=== PATIENT | male | born 1965 ===

== ENCOUNTER 2017-02-21 18:29 | Emergency (ER) | payer OTHER ==
--- NOTE | 2017-02-21 19:52 | C.PDOC ---
History Of Present Illness 51 year old male presents to the ED c/o left testicular pain on/off described as dull, aching, throbbing pain for the last 2 and half days. Patient denies dysuria, hematuria, trauma, injury, abdominal pain, fever, nausea, vomit. Time Seen by Provider: 02/21/17 19:51 Chief Complaint (Nursing): Male Genitourinary History Per: Patient History/Exam Limitations: no limitations Onset/Duration Of Symptoms: Days Current Symptoms Are (Timing): Still Present Quality Of Discomfort: Dull, Aching Associated Symptoms: denies: Fever, Chills, Diarrhea, Back Pain, Urinary Symptoms Alleviating Factors: None Recent travel outside of the [place]: No Additional History Per: Patient Past Medical History Reviewed: Historical Data, Nursing Documentation, Vital Signs Vital Signs: Last Vital Signs Temp 97.7 F 02/21/17 18:36 Pulse 82 02/21/17 18:36 Resp 20 02/21/17 18:36 BP 146/81 02/21/17 18:36 Pulse Ox 100 02/21/17 21:11 - Medical History PMH: No Chronic Diseases Surgical History: No Surg Hx Family History: States: No Known Family Hx - Social History Hx Alcohol Use: No Hx Substance Use: No Review Of Systems Constitutional: Negative for: Fever, Chills Cardiovascular: Negative for: Chest Pain Respiratory: Negative for: Cough, Shortness of Breath Gastrointestinal: Negative for: Nausea, Vomiting, Abdominal Pain Genitourinary: Negative for: Dysuria, Hematuria Musculoskeletal: Positive for: Other (left testicle pain) Skin: Negative for: Rash Neurological: Negative for: Weakness, Numbness Physical Exam - Physical Exam Appears: Non-toxic, No Acute Distress Skin: Warm, Dry Head: Normacephalic Nose: No Discharge Oral Mucosa: Moist Neck: Normal ROM, Supple Chest: Symmetrical Cardiovascular: Rhythm Regular, No Murmur Respiratory: No Rales, No Rhonchi, No Wheezing Gastrointestinal/Abdominal: Soft, No Tenderness Male Genital: Testicular Tenderness (left), Testicular Swelling (Left), No Inguinal Tenderness, No Circumcised, No Other (No mass palpated) Extremity: Normal ROM, No Pedal Edema, No Calf Tenderness, No Swelling Neurological/Psych: Oriented x3, Normal Speech, Normal Cognition ED Course And Treatment - Laboratory Results Result Diagrams: 02/21/17 20:21 02/21/17 20:21 O2 Sat by Pulse Oximetry: 100 (On RA) Pulse Ox Interpretation: Normal - CT Scan/US Testicular US Other Rad Studies (CT/US): Interpreted By Me, Read By Radiologist, Radiology Report Reviewed CT/US Interpretation: EXAM: US Scrotum. EXAM DATE/TIME: Exam ordered 2016 7:54 PM. CLINICAL HISTORY: 51 years old, male; Pain; Other: Lt test pain ; Additional info: Left testicular pain. TECHNIQUE: Real-time ultrasound of the scrotum with color Doppler and image documentation. COMPARISON: No relevant prior studies available. FINDINGS: Right testicle: The right testicle measures 4.9 x 2.3 x 2.7 cm. No torsion. Left testicle: The left testicle measures 3.7 2.8 x 3.1 cm. No torsion. Epididymides: The head of the right epididymis measures 1.2 x 0.6 x 1.1 cm. The left epididymal. head measures 1.4 x 0.7 x 0.9 cm. The tail of the left epididymis is enlarged and hypervascular. The. tail measures 2 cm in maximal diameter. Scrotum: There is a small to moderate sized left hydrocele. The fluid contains a few internal. scattered echoes. There is a small complex right hydrocele. Other findings: Vascularity is noted within both testes on color Doppler and pulsed Doppler. examination. The echotexture of the testes is symmetric and homogeneous. IMPRESSION: 1. Left epididymitis. 2. Small hydroceles bilaterally, left greater than right. 3. Small left varicocele Progress Note: Plan: Blood work, UA, Testicular US Reevaluation Time: 21:14 Reassessment Condition: Improved Disposition Counseled Patient/Family Regarding: Studies Performed, Diagnosis, Need For Followup, Rx Given - Disposition Referrals: [facility] [Outside] [facility] [Outside] Luis Hauser MD [Staff Provider] - Disposition: HOME/ ROUTINE Disposition Time: 19:52 Condition: FAIR Prescriptions: levoFLOXacin [Levaquin] 500 mg PO DAILY #7 tab Naproxen [Naprosyn] 1 tab PO BID PRN #25 tab PRN Reason: Pain Instructions: Epididymitis (ED), Testicle Pain (ED) Forms: [employer] (Serbian) - Clinical Impression Clinical Impression: Epididymitis - Scribe Statement The provider has reviewed the documentation as recorded by the Scribe Mitch Otoole All medical record entries made by the Scribe were at my direction and personally dictated by me. I have reviewed the chart and agree that the record accurately reflects my personal performance of the history, physical exam, medical decision making, and the department course for this patient. I have also personally directed, reviewed, and agree with the discharge instructions and disposition.
[2017-02-21] MEDS ORDERED: Lactated Ringer's 1,000 ML IV ONE (19:54)
[2017-02-21 20:34] LABS: BASO # 0.1 K/uL (0.0-0.2); BASO % 0.6 % (0.0-2.0); EOS # 0.2 K/uL (0.0-0.7); EOS % 1.6 % (0.0-4.0); HEMATOCRIT 36.5 % (35.0-51.0); LYMPH # 2.6 K/uL (1.0-4.3); LYMPH % 19.9 % (20.0-40.0); MEAN CELL VOLUME 83.9 fL (80.0-94.0); MEAN CORPUSCULAR HEMOGLOBIN 28.3 pg (27.0-31.0); MEAN CORPUSCULAR HGB CONC 33.7 g/dL (33.0-37.0); MEAN PLATELET VOLUME 6.6 fL (7.2-11.7); MONO # 1.1 K/uL (0.0-0.8); MONO % 8.8 % (0.0-10.0); NRBC % 0.3 % (0.0-2.0); WHITE BLOOD COUNT 13.1 K/uL (4.8-10.8)
[2017-02-21 20:47] LABS: BLOOD UREA NITROGEN 14 mg/dL (9-20); CALCIUM 8.9 mg/dl (8.6-10.4); CARBON DIOXIDE 30 mmol/L (22-30); CHLORIDE 102 mmol/L (98-107); GFR AFRICAN-AMERICAN > 60; GLUCOSE,RANDOM 98 mg/dL (75-110); SODIUM 139 mmol/L (132-148)
[2017-02-21 20:54] LABS: RBC URINE 198 /hpf (0-3); URINE BACTERIA MOD (<OCC); URINE BILIRUBIN NEGATIVE (NEGATIVE); URINE BLOOD 2+ (NEGATIVE); URINE COLOR Yellow (YELLOW); URINE GLUCOSE (UA) NORMAL (Normal); URINE KETONE NEGATIVE (NEGATIVE); URINE LEUKOCYTE ESTERASE 3+ Leu/uL (Negative); URINE PROTEIN 2+ mg/dL (NEGATIVE); WBC URINE 241 /hpf (0-5)
[2017-02-21] MEDS ORDERED: cefTRIAXone IV 1 gm in Dextros 50 ML IVPB ONE (21:03)
--- NOTE | 2017-02-21 21:09 | US ---
EXAM: US Scrotum EXAM DATE/TIME: Exam ordered 02/21/2017 7:54 PM CLINICAL HISTORY: 51 years old, male; Pain; Other: Lt test pain; Additional info: Left testicular pain TECHNIQUE: Real-time ultrasound of the scrotum with color Doppler and image documentation. COMPARISON: No relevant prior studies available. FINDINGS: Right testicle: The right testicle measures 4.9 x 2.3 x 2.7 cm. No torsion. Left testicle: The left testicle measures 3.7 2.8 x 3.1 cm. No torsion. Epididymides: The head of the right epididymis measures 1.2 x 0.6 x 1.1 cm. The left epididymal head measures 1.4 x 0.7 x 0.9 cm. The tail of the left epididymis is enlarged and hypervascular. The tail measures 2 cm in maximal diameter. Scrotum: There is a small to moderate sized left hydrocele. The fluid contains a few internal scattered echoes. There is a small complex right hydrocele. Other findings: Vascularity is noted within both testes on color Doppler and pulsed Doppler examination. The echotexture of the testes is symmetric and homogeneous. IMPRESSION: 1. Left epididymitis 2. Small hydroceles bilaterally, left greater than right. 3. Small left varicocele
[2017-02-21] MEDS ORDERED: cefTRIAXone 1 gm 1 GM/100 ML BAG IVPB ONE (22:00)
[2017-02-21 22:48] VITALS: BP 132/71; PULSE 78; RESP 16; TEMP 98.5; O2SAT 99
== END 2017-02-21 22:48 | disposition home or self-care (01) ==
LOC: C.ER 18:29
DX: N45.1 Epididymitis (principal)
CPT/HCPCS: 76870; 80048; 81001; 84484; 85025; 85730; 96361; 96365; 99284; J0696; J7120

== ENCOUNTER 2018-01-29 08:28 | Emergency (ER) | payer OTHER ==
[2018-01-29 08:36] VITALS: O2SAT 100
[2018-01-29] MEDS ORDERED: Naproxen 550 mg Tab PO STA (09:35)
[2018-01-29] MEDS ORDERED: Naproxen 550 mg Tab PO ONE (09:46)
--- NOTE | 2018-01-29 10:18 | C.PDOC ---
History Of Present Illness 52 year old male presents to the ED for evaluation of right elbow pain for 2 months. Patient states pain is worse with movement of his right forearm. He is not currently working. Patient denies trauma to the area, rash or sensory changes. Time Seen by Provider: 01/29/18 09:02 Chief Complaint (Nursing): Upper Extremity Problem/Injury History Per: Patient History/Exam Limitations: no limitations Onset/Duration Of Symptoms: Other (2 months ) Current Symptoms Are (Timing): Still Present Quality: "Pain" Additional History Per: Patient Past Medical History Reviewed: Historical Data, Nursing Documentation, Vital Signs Vital Signs: Last Vital Signs Temp 97.9 F 01/29/18 08:33 Pulse 56 L 01/29/18 08:33 Resp 18 01/29/18 08:33 BP 130/82 01/29/18 08:33 Pulse Ox 100 01/29/18 08:33 - Medical History PMH: No Chronic Diseases Surgical History: No Surg Hx Family History: States: Unknown Family Hx - Social History Hx Alcohol Use: No Hx Substance Use: No - Immunization History Hx Tetanus Toxoid Vaccination: No Hx Influenza Vaccination: No Hx Pneumococcal Vaccination: No Review Of Systems Musculoskeletal: Positive for: Other (right elbow pain ) Skin: Negative for: Rash Neurological: Negative for: Weakness, Numbness Physical Exam - Physical Exam Appears: Non-toxic, No Acute Distress, Other (comfortable ) Skin: Normal Color, Warm, Dry, No Rash Head: Atraumatic, Normacephalic Eye(s): bilateral: Normal Inspection Extremity: Normal ROM (limited ROM, secondary to pain worse with pronation and supination of the area), Tenderness (to lateral aspect of right elbow on palpation ), Capillary Refill (less than 2 seconds ), No Deformity, No Swelling, No Other (erythema ) Pulses: Left Radial: Normal, Right Radial: Normal Neurological/Psych: Oriented x3, Normal Speech, Normal Cognition Gait: Steady ED Course And Treatment O2 Sat by Pulse Oximetry: 100 (on RA) Pulse Ox Interpretation: Normal - Other Rad right elbow XR X-Ray: Viewed By Me, Read By Radiologist Interpretation: PROCEDURE: Radiographs of the right elbow. HISTORY: RIGHT ELBOW PAIN. COMPARISON: No prior. FINDINGS: BONES: No acute displaced fracture. JOINTS: No dislocation. SOFT TISSUES: Unremarkable. No evidence of radiopaque foreign body. JOINT EFFUSION: No significant joint effusion. OTHER FINDINGS: None. IMPRESSION: No acute displaced fracture, dislocation, or significant joint effusion identified. If symptoms persist, or if there is continued clinical concern, x-ray follow-up in 7-10 days should be considered. Progress Note: Right elbow XR ordered and reviewed. Naproxen PO given. JOHN bandage applied by video game repair technician and was checked by me. On reassessment, patient is resting comfortably, showing no signs of distress and reports an improvment in symptoms. Patient is stable for discharge with Rx for Naproxen and is advised to follow up with orthopedist within 1 week for further evaluation. Disposition Counseled Patient/Family Regarding: Studies Performed, Diagnosis, Need For Followup, Rx Given - Disposition Referrals: Ora Price MD [Staff Provider] - Disposition: HOME/ ROUTINE Disposition Time: 10:15 Condition: STABLE Additional Instructions: FOLLOW UP WITH ORTHOPEDICS WITHIN 1 WEEK USE MEDICATION NEEDED RETURN TO ER IF SYMPTOMS WORSEN Prescriptions: Naproxen 375 mg PO BID PRN #20 tablet PRN Reason: pain Instructions: Lateral Epicondylitis (DC), Tendonitis (DC) Forms: [employer] (Albanian) Print Language: FAROESE - POA Present On Arrival: None - Clinical Impression Clinical Impression: Right elbow tendonitis - Scribe Statement The provider has reviewed the documentation as recorded by the Scribe (Miriam Whitmore) Provider Attestation: All medical record entries made by the Scribe were at my direction and personally dictated by me. I have reviewed the chart and agree that the record accurately reflects my personal performance of the history, physical exam, medical decision making, and the department course for this patient. I have also personally directed, reviewed, and agree with the discharge instructions and disposition.
[2018-01-29 10:25] VITALS: BP 117/73; PULSE 53; RESP 20; TEMP 98
--- NOTE | 2018-01-29 10:46 | RAD ---
PROCEDURE: Radiographs of the right elbow. HISTORY: RIGHT ELBOW PAIN COMPARISON: No prior. FINDINGS: BONES: No acute displaced fracture. JOINTS: No dislocation. SOFT TISSUES: Unremarkable. No evidence of radiopaque foreign body. JOINT EFFUSION: No significant joint effusion. OTHER FINDINGS: None IMPRESSION: No acute displaced fracture, dislocation, or significant joint effusion identified. If symptoms persist, or if there is continued clinical concern, x-ray follow-up in 7-10 days should be considered.
== END 2018-01-29 10:26 | disposition home or self-care (01) ==
LOC: C.ER 08:28
DX: M77.9 Enthesopathy, unspecified (principal)

== ENCOUNTER 2018-06-05 09:13 | Emergency (ER) | payer OTHER ==
--- NOTE | 2018-06-05 10:34 | C.PDOC ---
History Of Present Illness 52 year old male presents to ED with complaint of bilateral deltoid area discomfort for the past week. Patient states that the discomfort is worse with hot showers and hot rubs. 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 He denies fall, trauma, numbness, and weakness. Time Seen by Provider: 06/05/18 10:26 Chief Complaint (Nursing): Upper Extremity Problem/Injury History Per: Patient History/Exam Limitations: no limitations Onset/Duration Of Symptoms: Days (7) Quality: "Pain" Exacerbating Factor(s): Other (hot showers and hot rubs) Past Medical History Reviewed: Historical Data, Nursing Documentation, Vital Signs Vital Signs: Last Vital Signs Temp 97.9 F 06/05/18 09:29 Pulse 61 06/05/18 09:29 Resp 18 06/05/18 09:29 BP 121/81 06/05/18 09:29 Pulse Ox 121 H 06/05/18 09:29 - Medical History PMH: No Chronic Diseases Surgical History: No Surg Hx Family History: States: Unknown Family Hx - Social History Hx Alcohol Use: No Hx Substance Use: No - Immunization History Hx Tetanus Toxoid Vaccination: No Hx Influenza Vaccination: No Hx Pneumococcal Vaccination: No Review Of Systems Constitutional: Negative for: Fever, Chills, Weakness Musculoskeletal: Positive for: Shoulder Pain (bilateral deltoid area discomfort) Neurological: Negative for: Weakness, Numbness, Dizziness Physical Exam - Physical Exam Appears: Well, Non-toxic, No Acute Distress Skin: Normal Color, Warm, Dry Head: Atraumatic, Normacephalic Neck: Normal ROM, Supple Chest: Symmetrical, No Deformity Extremity: Normal ROM (bilateral shoulders), Tenderness (minimal tenderness to the bilateral deltoid area) Neurological/Psych: Oriented x3, Normal Speech, Normal Cognition ED Course And Treatment O2 Sat by Pulse Oximetry: 121 (in RA) Progress Note: Patient given Motrin PO. Re-evaluation. Patient feels better. Discussed results and plan with patient who expresses understanding. All questions answered and there is agreement with the plan to discharge home with instructions. Patient stable for discharge. Return if symptoms persist or worsen. Medical Decision Making Medical Decision Making: b/l shoulder muscular aches worse with heat therapies, no strain/traumas ice/NSAIDS educated Disposition Doctor Will See Patient In The: Office Counseled Patient/Family Regarding: Studies Performed, Diagnosis - Disposition Referrals: [facility] [Outside] [facility] [Outside] [facility] [Outside] Disposition: HOME/ ROUTINE Disposition Time: 10:35 Condition: GOOD Additional Instructions: motrin/Advil 400-600 mg every 6 hours as needed for local shoulder discomfort ice packs 1/2 hour per hour, nothing hot no hot showers NEVER heating pads. Instructions: Muscle Strain (DC) Forms: [facility] (Afghan) - Clinical Impression Clinical Impression: Muscle strain, shoulder region - Scribe Statement The provider has reviewed the documentation as recorded by the Scribe (Adamaris Rivera) All medical record entries made by the Scribe were at my direction and personally dictated by me. I have reviewed the chart and agree that the record accurately reflects my personal performance of the history, physical exam, medical decision making, and the department course for this patient. I have also personally directed, reviewed, and agree with the discharge instructions and disposition.
[2018-06-05 10:37] VITALS: BP 124/79; PULSE 58; RESP 20; TEMP 97.7
[2018-06-05 12:42] VITALS: O2SAT 121
== END 2018-06-05 10:47 | disposition home or self-care (01) ==
LOC: C.ER 09:13
DX: S46.912A Strain of unspecified muscle, fascia and tendon at shoulder and upper arm level, left arm, initial encounter (principal); S46.911A Strain of unspecified muscle, fascia and tendon at shoulder and upper arm level, right arm, initial encounter; X58.XXXA Exposure to other specified factors, initial encounter